=== PATIENT | male | born 1950 | race Caucasian/White ===

== ENCOUNTER 2018-06-28 16:24 | Inpatient (IN) | payer MEDICARE, MEDICAID ==
--- NOTE | 2018-06-28 17:27 | ED Physician Chart ---
ED Chief Complaint/HPI - Patient Information Date Seen:: 06/28/18 Time Seen:: 16:20 Chief Complaint:: Agitation History of Present Illness:: onset x 3 days of agitation and aggressive behavior; no report of trauma, H/As, SIs, neck pain, C/P, SOB, Abd. Pain, A/N/V/D/C, fever, chills, or urinary s/s Allergies:: Allergies Allergy/AdvReac Type Severity Reaction Status Date / Time No Known Allergies Allergy Verified 06/28/18 16:57 Historian:: Patient, EMS Review:: Nurse's Note Reviewed, Old Chart Reviewed, EMS run form Reviewed ED Review of Systems - Review of Systems General/Constitutional: No fever, No chills, No weight loss, No weakness, No diaphoresis, No edema, No loss of appetite Skin: No skin lesions, No rash, No bruising Head: No headache, No light-headedness Eyes: No loss of vision, No pain, No diplopia ENT: No earache, No nasal drainage, No sore throat, No tinnitus Neck: No neck pain, No swelling, No thyromegaly, No stiffness, No mass noted Cardio Vascular: No chest pain, No palpitations, No PND, No orthopnea, No edema Pulmonary: No SOB, No cough, No sputum, No wheezing GI: No nausea, No vomiting, No diarrhea, No pain, No melena, No hematochezia, No constipation, No hematemesis G/U: No dysuria, No frequency, No hematuria, No nacturia Musculoskeletal: No bone or joint pain, No back pain, No muscle pain Endocrine: No polyuria, No polydipsia Psychiatric: No prior psych history, No depression, No anxiety, No suicidal ideation, No homicidal ideation, No auditory hallucination, No visual hallucination Hematopoietic: No bruising, No lymphadenopathy Allergic/Immuno: No urticaria, No angioedema Neurological: No syncope, No focal symptoms, No weakness, No paresthesia, No headache, No seizure, No dizziness, No confusion, No vertigo ED Past Medical History - Past Medical History Obtainable: Yes Past Medical History: HTN, Dyslipidemia Family History: HTN Social History: Non Smoker, No Alcohol, No Drug Use, Single, Care Facility Surgical History: None Psychiatricy History: Bipolar Medication: Reviewed ED Physical Exam - Physical Examination General/Constitutional: Awake, Well-developed, well-nourished, Alert, No distress, GCS 15, Non-toxic appearing, Ambulatory Head: Atraumatic Eyes: Lids, conjuctiva normal, PERRL, EOMI Skin: Nl inspection, No rash, No skin lesions, No ecchymosis, Well hydrated, No lymphadenopathy ENMT: External ears, nose nl, TM canals nl, Nasal exam nl, Lips, teeth, gums nl , Oropharynx nl, Tonsils nl Neck: Nontender, Full ROM w/o pain, No JVD, No nuchal rigidity, No bruit, No mass, No stridor Respiratory: Nl effort/Exclusion, Clear to Auscultation, No Wheeze/Rhonchi/Rales Cardio Vascular: RRR, No murmur, gallop, rubs, NL S1 S2, Carotid/Femoral/Distal pulses equal bilaterally GI: No tenderness/rebounding/guarding, No organomegaly, No hernia, Normal BS's, Nondistended, No mass/bruits, No McBurney tenderness : No CVA tenderness Extremities: No tenderness or effusion, Full ROM, normal strength in all extremities, No edema, Normal digits & nails Neuro/Psych: Alert/oriented, DTR's symmetric, Normal sensory exam, Normal motor strength, Judgement/insight normal, Mood normal, Normal gait, No focal deficits Other Neuro/Psych comments:: + Psychomotor Agitation; no SIs; Mood/Affect: Labile Misc: Normal back, No paraspinal tenderness ED Septic Shock - . Is Septic Shock (SBP<90, OR Lactate>4 mmol\L) present?: No ED Reassessment (Disposition) - Reassessment Reassessment Condition:: Improved - Diagnosis Diagnosis:: Agitation; Medical Clearance
[2018-06-28 21:00] LABS: % BASOPHILS 0.3 % (0.0-2.0); % EOSINOPHILS 2.6 % (0.0-5.0); % LYMPHOCYTES 41.9 % (20.0-50.0); % MONOCYTES 8.3 % (2.0-10.0); % NEUTROPHILS 46.9 % (40.0-80.0); EOSINOPHILE ABSOLUTE 0.3 Th/cmm (0.1-0.4); HEMATOCRIT 51.5 % (41.0-60); LYMPHOCYTE ABSOLUTE 4.1 Th/cmm (1.5-3.0); MEAN CELL VOLUME 94.1 fl (80-99); MEAN CORPUSCULAR HEMOGLOBIN 31.1 pg (27.0-31.0); MEAN CORPUSCULAR HGB CONC 33.1 pg (28.0-36.0); MEAN PLATELET VOLUME 7.7 fl; MONOCYTE ABSOLUTE 0.8 Th/cmm (0.3-1.0); NEUTROPHILE ABSOLUTE 4.5 Th/cmm (1.8-8.0); PLATELET COUNT 235 Th/cmm (150-400); RED BLOOD COUNT 5.47 Mil/cmm (3.80-5.80); RED CELL DISTRIBUTION WIDTH 12.5 % (11.5-20.0); WHITE BLOOD COUNT 9.7 Th/cmm (4.8-10.8)
[2018-06-28 21:32] LABS: ACETAMINOPHEN < 10.0 ug/mL (10.0-30.0); ALKALINE PHOSPHATASE 51 U/L (34-104); BILIRUBIN,TOTAL 0.6 mg/dL (0.3-1.0); BUN - UREA NITROGEN 10 mg/dL (7-25); CALCIUM SERUM 9.2 mg/dL (8.6-10.3); CHOLESTEROL 142 mg/dL (<200); CREATININE - SERUM 0.6 mg/dL (0.7-1.3); GFR AFRICAN-AMERICAN > 60.0 ml/min (>90); GFR NON AFRICAN-AMERICAN > 60.0 ml/min; GLUCOSE 91 mg/dL (70-105); HDL -HIGH DENSITY LIPOPROTEIN 47 mg/dL (23-92); SGOT 15 U/L (13-39); SGPT/ALT 12 U/L (7-52); TOTAL PROTEIN,SERUM 6.3 gm/dL (6.0-8.3); TRIGLYCERIDES 101 mg/dL (<150)
[2018-06-28 22:28] LABS: CHLORIDE 100 mEq/L (98-107); SODIUM SERUM 138 mEq/L (136-145)
[2018-06-28 22:31] LABS: ALB/GLOB RATIO 1.2 (1.0-1.8); ALBUMIN 3.4 gm/dL (4.2-5.5)
[2018-06-28 22:32] LABS: SALICYLATES (ASPIRIN) < 25.0 mg/L (30.0-100.0)
[2018-06-29 00:06] VITALS: BP 136/97
[2018-06-29] MEDS ORDERED: Polyvinyl Alcohol Ophth Soln 15 mL Bottle EACH EYE PRN (00:55)
[2018-06-29] MEDS ORDERED: Non-Formulary Item 1 EA (Clonidine Hcl [Clonidine Hcl] 0.2 MG) PO SCH (01:00)
[2018-06-29 03:12] LABS: CHOLESTEROL 144 mg/dL (<200); HDL -HIGH DENSITY LIPOPROTEIN 49 mg/dL (23-92); TRIGLYCERIDES 105 mg/dL (<150)
--- NOTE | 2018-06-29 08:56 | History and Physical ---
History of Present Illness - HPI Chief Complaint: Increased in agitation HPI: Patient was send from SNF for evaluation for increased in agitation. 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 Pertinent Hx GI: Report: No Pertinent Hx Psych: Report: Psychosis Musculoskeletal: Report: Weakness, Other (Left hemiplegia) Rheumatologic: Report: No pertinent Hx Infectious Disease: Report: No Pertinent Hx Renal/: Report: Benign Prostatic Enlarg Endocrine: Report: No Pertinent Hx Dermatology: Report: No Pertinent Hx - Past Surgical History Past Surgical History: No pertinent Hx Family Medical History - Family Member Mother History Unknown: Yes Social History Smoke: <1 pack per day Alcohol: None Drugs: None Lives: Custodial Domestic Violence: Negative - Medications Home Medications: Home Medication Medication Instructions Recorded Type Acetaminophen 650 mg PO Q4H PRN 06/28/18 History Albuterol/Ipratropium Neb [Duoneb 3 ml HHN Q8HR PRN 06/28/18 History Neb] Clonidine HCl 0.2 mg PO Q12H 06/28/18 History Dextran 70/Hypromellose/Pf 1 each EACH EYE Q6H PRN 06/28/18 History [Artificial Tears Drops] Docusate Sodium [Col-Rite] 250 mg PO DAILY 06/28/18 History Escitalopram Oxalate [Lexapro] 5 mg PO HS 06/28/18 History Fluticasone/Salmeterol [Advair 1 puff IH BID 06/28/18 History 250-50 Diskus] Hydrochlorothiazide [Hctz*] 25 mg PO DAILY 06/28/18 History Levetiracetam [Keppra] 500 mg PO BID 06/28/18 History Multivitamin w/ Minerals 1 tab PO DAILY 06/28/18 History [Theragran M] Psyllium Husk/Aspartame 3.4 gm PO BID 06/28/18 History [Margaret-Mucil Powder] QUEtiapine Fumarate [SEROquel] 100 mg PO HS 06/28/18 History Tamsulosin [Flomax] 0.4 mg PO QPM 06/28/18 History - Allergies Allergies/Adverse Reactions: Allergies Allergy/AdvReac Type Severity Reaction Status Date / Time No Known Allergies Allergy Verified 06/28/18 16:57 Review of Systems - Review of Systems Constitutional: Report: No Significant Eyes: Report: No Significant ENT: Report: No Significant Respiratory: Report: No Significant Cardiovascular: Report: No Significant Gastrointestinal: Report: No Significant Genitourinary: Report: No Significant Musculoskeletal: Report: No Significant Skin: Report: No Significant Neurological: Report: Weakness Physical Exam - Physical Exam HEENT: Report: Ears Nose Throat within normal limits Neck: Report: Within normal limits Cardiovascular Systems: Report: Regular, Rate and Rhythm Respiratory: Report: Other (Rude respiration) Abdomen: Report: Non-tender to palpation Back: Report: Inspection of back is within normal limits. Extremities: Report: Other (Left hemiplegia) Neuro/Psych: Report: Depressed affect - Lab Results All Lab Results last 24 hours: Laboratory Results - last 24 hr 06/28/18 06/28/18 06/28/18 20:50 20:50 20:50 WBC 9.7 RBC 5.47 Hgb 17.0 Hct 51.5 MCV 94.1 MCH 31.1 H MCHC Differential 33.1 RDW 12.5 Plt Count 235 MPV 7.7 Neutrophils % 46.9 Lymphocytes % 41.9 Monocytes % 8.3 Eosinophils % 2.6 Basophils % 0.3 Sodium 138 Potassium 4.0 Chloride 100 Carbon Dioxide 29.0 Anion Gap 13.0 BUN 10 Creatinine 0.6 L Est GFR ( Amer) > 60.0 Est GFR (Non-Af Amer) > 60.0 BUN/Creatinine Ratio 16.7 Glucose 91 Calcium 9.2 Total Bilirubin 0.6 AST 15 ALT 12 Alkaline Phosphatase 51 Troponin I Total Protein 6.3 Albumin 3.4 L Globulin 2.9 Albumin/Globulin Ratio 1.2 Triglycerides 101 Cholesterol 142 LDL Cholesterol Direct 92 HDL Cholesterol 47 TSH 2.91 Salicylates < 25.0 L Acetaminophen < 10.0 L Ethyl Alcohol < 10 06/28/18 06/28/18 20:50 20:50 WBC RBC Hgb Hct MCV MCH MCHC Differential RDW Plt Count MPV Neutrophils % Lymphocytes % Monocytes % Eosinophils % Basophils % Sodium Potassium Chloride Carbon Dioxide Anion Gap BUN Creatinine Est GFR ( Amer) Est GFR (Non-Af Amer) BUN/Creatinine Ratio Glucose Calcium Total Bilirubin AST ALT Alkaline Phosphatase Troponin I 0.01 Total Protein Albumin Globulin Albumin/Globulin Ratio Triglycerides 105 Cholesterol 144 LDL Cholesterol Direct 97 HDL Cholesterol 49 TSH Salicylates Acetaminophen Ethyl Alcohol - Assessment Assessment: Patient is awake, resting in chair, angry, in no acute distress. Dx: increased in agitation, HTN, COPD, BPH, Left hemiplegia, S.P CVA. - Plan Plan: Patient is follow by Psychiatry, silvia continue with SNF meds. Will continue to monitor.
[2018-06-29] MEDS ORDERED: Non-Formulary Item 1 EA (Fluticasone/Salmeterol [Advair 250-50 Diskus] 1 PUFF) IH SCH (09:00)
[2018-06-29] MEDS: Multivitamin w/ Minerals Tab PO SCH (10:00)
[2018-06-29] MEDS: Budesonide 0.5 Mg/2 mL Ud HHN SCH (19:51)
[2018-06-29] MEDS: Escitalopram Oxalate 5 mg Tab PO SCH (20:52)
[2018-06-30] MEDS: Budesonide 0.5 Mg/2 mL Ud HHN SCH ×2 (07:32→20:08)
--- NOTE | 2018-06-30 08:39 | General Progress Note ---
Subjective - Review of Systems Service Date: 06/30/18 Subjective: I want go back to my place. Objective - Results Result Diagrams: 06/28/18 20:50 06/28/18 20:50 Recent Labs: Laboratory Last Values WBC 9.7 Th/cmm (4.8-10.8) 06/28/18 20:50 RBC 5.47 Mil/cmm (3.80-5.80) 06/28/18 20:50 Hgb 17.0 gm/dL (12-16) 06/28/18 20:50 Hct 51.5 % (41.0-60) 06/28/18 20:50 MCV 94.1 fl (80-99) 06/28/18 20:50 MCH 31.1 pg (27.0-31.0) H 06/28/18 20:50 MCHC Differential 33.1 pg (28.0-36.0) 06/28/18 20:50 RDW 12.5 % (11.5-20.0) 06/28/18 20:50 Plt Count 235 Th/cmm (150-400) 06/28/18 20:50 MPV 7.7 fl 06/28/18 20:50 Neutrophils % 46.9 % (40.0-80.0) 06/28/18 20:50 Lymphocytes % 41.9 % (20.0-50.0) 06/28/18 20:50 Monocytes % 8.3 % (2.0-10.0) 06/28/18 20:50 Eosinophils % 2.6 % (0.0-5.0) 06/28/18 20:50 Basophils % 0.3 % (0.0-2.0) 06/28/18 20:50 Sodium 138 mEq/L (136-145) 06/28/18 20:50 Potassium 4.0 mEq/L (3.5-5.1) 06/28/18 20:50 Chloride 100 mEq/L (98-107) 06/28/18 20:50 Carbon Dioxide 29.0 mEq/L (21.0-31.0) 06/28/18 20:50 Anion Gap 13.0 (7.0-16.0) 06/28/18 20:50 BUN 10 mg/dL (7-25) 06/28/18 20:50 Creatinine 0.6 mg/dL (0.7-1.3) L 06/28/18 20:50 Est GFR ( Amer) > 60.0 ml/min (>90) 06/28/18 20:50 Est GFR (Non-Af Amer) > 60.0 ml/min 06/28/18 20:50 BUN/Creatinine Ratio 16.7 06/28/18 20:50 Glucose 91 mg/dL (70-105) 06/28/18 20:50 Calcium 9.2 mg/dL (8.6-10.3) 06/28/18 20:50 Total Bilirubin 0.6 mg/dL (0.3-1.0) 06/28/18 20:50 AST 15 U/L (13-39) 06/28/18 20:50 ALT 12 U/L (7-52) 06/28/18 20:50 Alkaline Phosphatase 51 U/L (34-104) 06/28/18 20:50 Troponin I 0.01 ng/mL (0.01-0.05) 06/28/18 20:50 Total Protein 6.3 gm/dL (6.0-8.3) 06/28/18 20:50 Albumin 3.4 gm/dL (4.2-5.5) L 06/28/18 20:50 Globulin 2.9 gm/dL 06/28/18 20:50 Albumin/Globulin Ratio 1.2 (1.0-1.8) 06/28/18 20:50 Triglycerides 105 mg/dL (<150) 06/28/18 20:50 Cholesterol 144 mg/dL (<200) 06/28/18 20:50 LDL Cholesterol Direct 97 mg/dL (75-193) 06/28/18 20:50 HDL Cholesterol 49 mg/dL (23-92) 06/28/18 20:50 TSH 2.91 uIU/ml (0.34-5.60) 06/28/18 20:50 Salicylates < 25.0 mg/L (30.0-100.0) L 06/28/18 20:50 Acetaminophen < 10.0 ug/mL (10.0-30.0) L 06/28/18 20:50 Ethyl Alcohol < 10 mg/dL (0-10) 06/28/18 20:50 - Physical Exam Vitals and I&O: Vital Signs Temp 97 F 06/29/18 20:00 Pulse 104 06/30/18 07:51 Resp 18 06/30/18 07:51 BP 164/67 06/29/18 20:00 Pulse Ox 97 06/30/18 07:51 Intake & Output 06/29/18 06/30/18 06/30/18 18:59 06:59 18:59 Intake Total 1200 120 Balance 1200 120 Intake: Oral 1200 120 Other: # Voids 3 # Bowel Movements 1 Stool Characteristics Soft Active Medications: Current Medications Acetaminophen (Tylenol) 650 mg PO Q4H PRN PRN Reason: Pain or Fever >101 Stop: 08/28/18 00:54 Albuterol/Ipratropium (Duoneb Neb) 3 ml HHN Q8HR PRN PRN Reason: Shortness of Breath or Wheeze Stop: 08/28/18 00:54 Artificial Tears (Artificial Tears Ophth Soln) 1 drop EACH EYE Q6H PRN PRN Reason: Dry Eye Budesonide (Pulmicort) 0.5 mg HHN BIDRT [facility] [place] Stop: 08/28/18 18:59 Last Admin: 06/30/18 07:32 Dose: Not Given Docusate Sodium (Colace) 250 mg PO DAILY [facility] [place] Stop: 08/28/18 08:59 Last Admin: 06/29/18 10:00 Dose: Not Given Escitalopram Oxalate (Lexapro) 5 mg PO HS [facility] [place]; Protocol Stop: 08/28/18 20:59 Last Admin: 06/29/18 20:52 Dose: 5 mg Hydrochlorothiazide (Hctz) 25 mg PO DAILY [facility] [place] Stop: 08/28/18 08:59 Last Admin: 06/29/18 10:08 Dose: 25 mg Levetiracetam (Keppra) 500 mg PO BID [facility] [place] Stop: 08/28/18 08:59 Last Admin: 06/29/18 16:24 Dose: Not Given Lorazepam (Ativan) 0.5 mg PO Q4HR PRN; Protocol PRN Reason: Anxiety Stop: 07/29/18 00:07 Psyllium Hydrophilic Mucilloid (Metamucil) 1 pkt PO BID [facility] [place] Stop: 08/28/18 08:59 Last Admin: 06/29/18 16:23 Dose: Not Given Quetiapine Fumarate (Seroquel) 100 mg PO HS [facility]; Protocol Stop: 08/28/18 20:59 Last Admin: 06/29/18 20:52 Dose: 100 mg Tamsulosin HCl (Flomax) 0.4 mg PO QPM [facility] Stop: 08/28/18 16:59 Last Admin: 06/29/18 16:24 Dose: Not Given Zolpidem Tartrate (Ambien) 5 mg PO HS PRN PRN Reason: Insomnia Stop: 08/28/18 00:07 General: Alert, Other (Agitated at moments.) HEENT: Atraumatic Neck: Supple Cardiovascular: Regular rate Lungs: Clear to auscultation Abdomen: Bowel sounds, Soft Extremities: Other (Limited movement of left side of body) Neurological: Other (Non ambulatory) Skin: Other (Warm and dry) Psych/Mental Status: Other (Patient is angry) - Procedures Procedures: Procedures Procedure Code Date OTHER GROUP THERAPY 94.44 11/06/11 RECREATIONAL THERAPY 93.81 11/06/11 Assessment/Plan - Assessment Assessment: Patient is awake, resting in chair, angry, in no acute distress. Dx: increased in agitation, HTN, COPD, BPH, Left hemiplegia, S.P CVA. - Plan Plan: Patient is follow by Psychiatry, silvia continue with SNF meds. Will continue to monitor.
[2018-06-30] MEDS: Multivitamin w/ Minerals Tab PO SCH (10:00)
--- NOTE | 2018-06-30 17:11 | Psychiatric Evaluation ---
DATE OF SERVICE: 06/29/2018 HISTORY OF PRESENT ILLNESS: A 68-year-old male sent by Dr. Tucker, multiple days of agitation, aggressive behaviors, attempting to hurt staff, hit staff, the patient denies this, minimizing, but multiple staff members at [facility] told me otherwise, also walking the hallway, aggressive, yelling, screaming, angry, upset, difficult to redirect. Staff concerned about their safety, safety of other people. The patient attesting to anger, depression, anxiety, stating that the staff were lying about him and are jealous because he has an expensive electric wheelchair. Fair sleep, fair appetite. PAST PSYCHIATRIC HISTORY: Noted, seems he has a history of unspecified mood disorder, on Lexapro, Seroquel. PAST MEDICAL HISTORY: Noted. Wheelchair bound also with history of seizures. SOCIAL HISTORY: The patient was born in [place]. He has had multiple marriages, 3 children. FAMILY HISTORY: Daughter with drug use, alcohol use, seems he may be estranged from his children. MEDICATIONS: Noted. MENTAL STATUS EXAMINATION: Stated age. Fair eye contact. Speech within normal limits, loud at times. Mood is "upset." Affect angry. Thought processes were tangential. No overt SI or HI. No overt psychotic symptoms. Some grandiosity is about people being jealous of him because of his electric wheelchair. Insight and judgment poor. Impulse control is poor. PROVISIONAL DIAGNOSES: Mood, unspecified; anxiety, unspecified. Under medical, please see full H and P. ESTIMATED LENGTH OF STAY: 7-10 days. ASSESSMENT: The patient is symptomatic, very labile and the patient with anger outbursts, trying to hit staff, very upset, not amenable to taking medications at this time, aggressive behaviors, trying to roll people down with the wheelchair, trying to hit staff and other patients. PLAN: Treatment plan includes group as well as milieu therapy. CONDITIONS FOR DISCHARGE: Improved mood, improved affect, better control of any agitation and aggressive behaviors. JOB# [id number]
--- NOTE | 2018-06-30 19:09 | Progress Notes ---
DATE: 06/30/2018 SUBJECTIVE: Currently here for agitation and escalation of behaviors, was trying to hit staff. Noting he feels "no calmer," and "pissed off," want to smoke more. The patient upset, mostly withdrawn, isolative, still noted to be angry, highly impulsive, unpredictable, concerns about poor impulsivity, concerns about him lashing out at others, trying to strike others as he has done so in the past. ASSESSMENT: The patient is angry, upset, withdrawn, mostly keeps to himself. Currently on dosing of Lexapro, Seroquel. I will be increasing his dosing of Seroquel to try to tamper down his mood symptoms, aggressive symptom, violent symptoms. JOB# [id number]
[2018-06-30] MEDS: Escitalopram Oxalate 5 mg Tab PO SCH (22:00)
[2018-07-01] MEDS: Budesonide 0.5 Mg/2 mL Ud HHN SCH ×2 (07:42→19:24)
[2018-07-01] MEDS: Multivitamin w/ Minerals Tab PO SCH (08:21)
[2018-07-01] MEDS: Escitalopram Oxalate 5 mg Tab PO SCH (21:56)
--- NOTE | 2018-07-02 01:21 | Progress Notes ---
DATE: 07/01/[address] Tucker. Case was discussed with staff of the patient, reviewed records. This is a 68-year-old male who was admitted on 06/28/2018 because of agitation and aggressive behavior ____. The patient minimizing events leading to admission. [facility]. He was walking in the hallway aggressive, yelling, screaming, angry, upset, hard to redirect, unpredictable, and impulsive. Continues to have poor insight. Unable to make safe plan for self-care. Continues to be unable to participate in a meaningful conversation. He continues to be on high risk. He is on Lexapro 5 mg daily and Seroquel 150 mg at bedtime with no side effects, no sedation or nausea, no extrapyramidal symptoms. The patient continues to be unable to formulate a safe plan for self-care, contract for safety, very volatile. We will continue to work with the patient in group therapy, milieu therapy, and adjust the medications as needed. JOB# [id number]
[2018-07-02] MEDS: Budesonide 0.5 Mg/2 mL Ud HHN SCH ×2 (07:51→18:40)
[2018-07-02] MEDS: Multivitamin w/ Minerals Tab PO SCH (08:03)
[2018-07-02] MEDS: Haldol Oral Sol.(concentrate) 10 mg/5 mL Udc PO SCH ×4 (08:06→21:57)
--- NOTE | 2018-07-02 10:03 | General Progress Note ---
Subjective - Review of Systems Service Date: 07/02/18 Subjective: I want go back to my place. Objective - Results Result Diagrams: 06/28/18 20:50 06/28/18 20:50 Recent Labs: Laboratory Last Values WBC 9.7 Th/cmm (4.8-10.8) 06/28/18 20:50 RBC 5.47 Mil/cmm (3.80-5.80) 06/28/18 20:50 Hgb 17.0 gm/dL (12-16) 06/28/18 20:50 Hct 51.5 % (41.0-60) 06/28/18 20:50 MCV 94.1 fl (80-99) 06/28/18 20:50 MCH 31.1 pg (27.0-31.0) H 06/28/18 20:50 MCHC Differential 33.1 pg (28.0-36.0) 06/28/18 20:50 RDW 12.5 % (11.5-20.0) 06/28/18 20:50 Plt Count 235 Th/cmm (150-400) 06/28/18 20:50 MPV 7.7 fl 06/28/18 20:50 Neutrophils % 46.9 % (40.0-80.0) 06/28/18 20:50 Lymphocytes % 41.9 % (20.0-50.0) 06/28/18 20:50 Monocytes % 8.3 % (2.0-10.0) 06/28/18 20:50 Eosinophils % 2.6 % (0.0-5.0) 06/28/18 20:50 Basophils % 0.3 % (0.0-2.0) 06/28/18 20:50 Sodium 138 mEq/L (136-145) 06/28/18 20:50 Potassium 4.0 mEq/L (3.5-5.1) 06/28/18 20:50 Chloride 100 mEq/L (98-107) 06/28/18 20:50 Carbon Dioxide 29.0 mEq/L (21.0-31.0) 06/28/18 20:50 Anion Gap 13.0 (7.0-16.0) 06/28/18 20:50 BUN 10 mg/dL (7-25) 06/28/18 20:50 Creatinine 0.6 mg/dL (0.7-1.3) L 06/28/18 20:50 Est GFR ( Amer) > 60.0 ml/min (>90) 06/28/18 20:50 Est GFR (Non-Af Amer) > 60.0 ml/min 06/28/18 20:50 BUN/Creatinine Ratio 16.7 06/28/18 20:50 Glucose 91 mg/dL (70-105) 06/28/18 20:50 Calcium 9.2 mg/dL (8.6-10.3) 06/28/18 20:50 Total Bilirubin 0.6 mg/dL (0.3-1.0) 06/28/18 20:50 AST 15 U/L (13-39) 06/28/18 20:50 ALT 12 U/L (7-52) 06/28/18 20:50 Alkaline Phosphatase 51 U/L (34-104) 06/28/18 20:50 Troponin I 0.01 ng/mL (0.01-0.05) 06/28/18 20:50 Total Protein 6.3 gm/dL (6.0-8.3) 06/28/18 20:50 Albumin 3.4 gm/dL (4.2-5.5) L 06/28/18 20:50 Globulin 2.9 gm/dL 06/28/18 20:50 Albumin/Globulin Ratio 1.2 (1.0-1.8) 06/28/18 20:50 Triglycerides 105 mg/dL (<150) 06/28/18 20:50 Cholesterol 144 mg/dL (<200) 06/28/18 20:50 LDL Cholesterol Direct 97 mg/dL (75-193) 06/28/18 20:50 HDL Cholesterol 49 mg/dL (23-92) 06/28/18 20:50 TSH 2.91 uIU/ml (0.34-5.60) 06/28/18 20:50 Salicylates < 25.0 mg/L (30.0-100.0) L 06/28/18 20:50 Acetaminophen < 10.0 ug/mL (10.0-30.0) L 06/28/18 20:50 Ethyl Alcohol < 10 mg/dL (0-10) 06/28/18 20:50 RPR NONREACTIVE (NONREACTIVE) 06/28/18 20:50 - Physical Exam Vitals and I&O: Vital Signs Temp 97.1 F 07/02/18 06:25 Pulse 96 07/02/18 08:03 Resp 20 07/02/18 07:51 BP 146/93 07/02/18 08:04 Pulse Ox 96 07/02/18 07:51 Intake & Output 07/01/18 07/02/18 07/02/18 18:59 06:59 18:59 Intake Total 1500 120 Balance 1500 120 Intake: Oral 1500 120 Other: # Voids 3 2 # Bowel Movements 0 0 Stool Characteristics Soft Soft Active Medications: Current Medications Acetaminophen (Tylenol) 650 mg PO Q4H PRN PRN Reason: Pain or Fever >101 Stop: 08/28/18 00:54 Last Admin: 07/01/18 13:10 Dose: 650 mg Albuterol/Ipratropium (Duoneb Neb) 3 ml HHN Q8HR PRN PRN Reason: Shortness of Breath or Wheeze Stop: 08/28/18 00:54 Artificial Tears (Artificial Tears Ophth Soln) 1 drop EACH EYE Q6H PRN PRN Reason: Dry Eye Budesonide (Pulmicort) 0.5 mg HHN BIDRT [facility] Stop: 08/28/18 18:59 Last Admin: 07/02/18 07:51 Dose: 0.5 mg Docusate Sodium (Colace) 250 mg PO DAILY [facility] Stop: 08/28/18 08:59 Last Admin: 07/02/18 08:07 Dose: Not Given Escitalopram Oxalate (Lexapro) 5 mg PO HS [facility]; Protocol Stop: 08/28/18 20:59 Last Admin: 07/01/18 21:56 Dose: Not Given Haloperidol Lactate (Haldol Concentrate 10mg/5ml Susp) 5 mg PO TID [facility]; Protocol Stop: 08/31/18 08:59 Last Admin: 07/02/18 08:23 Dose: Not Given Hydrochlorothiazide (Hctz) 25 mg PO DAILY [facility] Stop: 08/28/18 08:59 Last Admin: 07/02/18 08:04 Dose: 25 mg Levetiracetam (Keppra) 500 mg PO BID [facility] Stop: 08/28/18 08:59 Last Admin: 07/02/18 08:06 Dose: 500 mg Lorazepam (Ativan) 0.5 mg PO Q4HR PRN; Protocol PRN Reason: Anxiety Stop: 07/29/18 00:07 Psyllium Hydrophilic Mucilloid (Metamucil) 1 pkt PO BID [facility] Stop: 08/28/18 08:59 Last Admin: 07/02/18 08:07 Dose: Not Given Quetiapine Fumarate 100 mg/ (Quetiapine Fumarate 50 mg) 150 mg PO HS [facility] Stop: 08/29/18 20:59 Last Admin: 07/01/18 21:56 Dose: Not Given Tamsulosin HCl (Flomax) 0.4 mg PO QPM [facility] Stop: 08/28/18 16:59 Last Admin: 07/01/18 17:24 Dose: 0.4 mg Zolpidem Tartrate (Ambien) 5 mg PO HS PRN PRN Reason: Insomnia Stop: 08/28/18 00:07 General: Alert, Other (Agitated at moments.) HEENT: Atraumatic Neck: Supple Cardiovascular: Regular rate Lungs: Clear to auscultation Abdomen: Bowel sounds, Soft Extremities: Other (Limited movement of left side of body) Neurological: Other (Non ambulatory) Skin: Other (Warm and dry) Psych/Mental Status: Other (Patient is angry) - Procedures Procedures: Procedures Procedure Code Date OTHER GROUP THERAPY 94.44 11/06/11 RECREATIONAL THERAPY 93.81 11/06/11 Assessment/Plan - Assessment Assessment: Patient is awake, resting in chair, angry, in no acute distress. Dx: increased in agitation, HTN, COPD, BPH, Left hemiplegia, S.P CVA. - Plan Plan: Patient is follow by Psychiatry, wuphilip continue with SNF meds. Will continue to monitor. Nutritional Asmnt/Malnutr-PDOC - Dietary Evaluation Malnutrition Findings (Please click <Entered> for more info): Nutritional Asmnt/Malnutrition Start: 06/29/18 11: 45 Text: Status: Complete Freq: Protocol: Document 07/01/18 18:09 LCHENG (Rec: 07/01/18 18:12 LCHENG [email or web address]) Nutritional Asmnt/Malnutrition Patient General Information Diagnosis psychosis Pertinent Medical Hx/Surgical Hx HTN, dyslipidemia, bipolar Subjective Information Pt seen on wheelchair in dining room. Pt stated he wants go back. Per EMR, PO intake 75-100%. Current Diet Order/ Nutrition Support regular, DIETER, prostate once a day Pertinent Medications colace Pertinent Labs 06/28 Cr 0.6, alb 3.4 Nutritional Hx/Data Height 1.68 m Height (Calculated Centimeters) 167.6 Current Weight (lbs) 74.843 kg Weight (Calculated Kilograms) 74.8 Weight (Calculated Grams) 23975.7 [place] Body Weight 142 Body Mass Index (BMI) 26.6 Weight Status Overweight GI Symptoms GI Symptoms None Last BM 06/29 Difficult in: None Skin Integrity/Comment: intact Current %PO Good (75-100%) Estimated Nutritional Goals BEE in Kcals: Using Current wt Calories/Kcals/Kg 23-27 Kcals Calculated 9536-4928 Protein: Using Current wt Protein g/k.8-1 Protein Calculated 60-75 Fluid: ml 1725-2025ml (1ml/kcal) Nutritional Problem No current Nutrition Prob Problem N/A Malnutrition Alert Is there a minimum of two criteria No selected? Query Text:Check all the applicable criteria. A minimum of two criteria are recommended for diagnosis of either severe or non-severe malnutrition. Malnutrition Related to Morbid Obesity Malnutrition related to morbid obesity No Intervention/Recommendation Comments 1. Continue with DIETER diet as ordered. Prostate is not carried, will send Prosource 1pkg daily instead. 2. Monitor PO intake, wt, labs and skin integrity 3. F/U as low risk in 7 days Expected Outcomes/Goals Expected Outcomes/Goals 1. PO intake to meet at least 75% of nutritional needs. 2. Wt stability, skin to remain intact, labs to approach WNL.
[2018-07-02] MEDS: Escitalopram Oxalate 5 mg Tab PO SCH (21:56)
[2018-07-03] MEDS: Budesonide 0.5 Mg/2 mL Ud HHN SCH ×2 (06:57→19:24)
[2018-07-03] MEDS: Haldol Oral Sol.(concentrate) 10 mg/5 mL Udc PO SCH ×3 (09:02→21:04)
[2018-07-03] MEDS: Multivitamin w/ Minerals Tab PO SCH (09:02)
[2018-07-03] MEDS: Albuterol/Ipratropium Neb 3 ML AERS HHN PRN (11:08)
--- NOTE | 2018-07-03 18:32 | Progress Notes ---
DATE: 07/02/2018 SUBJECTIVE: Chart reviewed and the patient interviewed. Also, discussed the patient's condition with the staff and reviewed records and labs. The patient is having episodes of yelling and he is easily agitated and in angry mood. The patient also is in irritable and "wanted to go back to [place]." The patient was obsessed, he was telling me the same sentence over and over. The patient also said that he informed psychologist that came to talk to him on the unit, "____ you." The patient is still angry and he is still unable to provide any safe plan for self-care and is still agitated. ASSESSMENT: The patient is still psychotic and needs close monitoring. TREATMENT PLAN: We will continue monitoring his behavior and his condition closely. Also, continue adjusting psychotropic medications and continue to follow up. JOB# [id number]
[2018-07-03] MEDS: Escitalopram Oxalate 5 mg Tab PO SCH (21:01)
[2018-07-04] MEDS: Budesonide 0.5 Mg/2 mL Ud HHN SCH ×2 (07:12→18:32)
--- NOTE | 2018-07-04 07:20 | Progress Notes ---
DATE: SUBJECTIVE: Chart reviewed and the patient interviewed. Also discussed the patient's condition with the staff and reviewed records and labs. The patient is still angry and is still in irritable mood. The patient also is still asking to go back "to [place]." He also is still wandering around and has episodes of yelling with anger. Otherwise, the patient is cooperative with his treatment and compliant with taking his medications with no side effects. ASSESSMENT: The patient is still in angry and in irritable mood. TREATMENT PLAN: Continue monitoring his behavior. The patient also was started on Haldol concentrate yesterday with no side effects. We will continue same dose and continue to follow up closely. [facility]# [id number]
--- NOTE | 2018-07-04 08:37 | General Progress Note ---
Subjective - Review of Systems Service Date: 07/04/18 Subjective: I want go back to my place. Objective - Results Result Diagrams: 06/28/18 20:50 06/28/18 20:50 Recent Labs: Laboratory Last Values WBC 9.7 Th/cmm (4.8-10.8) 06/28/18 20:50 RBC 5.47 Mil/cmm (3.80-5.80) 06/28/18 20:50 Hgb 17.0 gm/dL (12-16) 06/28/18 20:50 Hct 51.5 % (41.0-60) 06/28/18 20:50 MCV 94.1 fl (80-99) 06/28/18 20:50 MCH 31.1 pg (27.0-31.0) H 06/28/18 20:50 MCHC Differential 33.1 pg (28.0-36.0) 06/28/18 20:50 RDW 12.5 % (11.5-20.0) 06/28/18 20:50 Plt Count 235 Th/cmm (150-400) 06/28/18 20:50 MPV 7.7 fl 06/28/18 20:50 Neutrophils % 46.9 % (40.0-80.0) 06/28/18 20:50 Lymphocytes % 41.9 % (20.0-50.0) 06/28/18 20:50 Monocytes % 8.3 % (2.0-10.0) 06/28/18 20:50 Eosinophils % 2.6 % (0.0-5.0) 06/28/18 20:50 Basophils % 0.3 % (0.0-2.0) 06/28/18 20:50 Sodium 138 mEq/L (136-145) 06/28/18 20:50 Potassium 4.0 mEq/L (3.5-5.1) 06/28/18 20:50 Chloride 100 mEq/L (98-107) 06/28/18 20:50 Carbon Dioxide 29.0 mEq/L (21.0-31.0) 06/28/18 20:50 Anion Gap 13.0 (7.0-16.0) 06/28/18 20:50 BUN 10 mg/dL (7-25) 06/28/18 20:50 Creatinine 0.6 mg/dL (0.7-1.3) L 06/28/18 20:50 Est GFR ( Amer) > 60.0 ml/min (>90) 06/28/18 20:50 Est GFR (Non-Af Amer) > 60.0 ml/min 06/28/18 20:50 BUN/Creatinine Ratio 16.7 06/28/18 20:50 Glucose 91 mg/dL (70-105) 06/28/18 20:50 Calcium 9.2 mg/dL (8.6-10.3) 06/28/18 20:50 Total Bilirubin 0.6 mg/dL (0.3-1.0) 06/28/18 20:50 AST 15 U/L (13-39) 06/28/18 20:50 ALT 12 U/L (7-52) 06/28/18 20:50 Alkaline Phosphatase 51 U/L (34-104) 06/28/18 20:50 Troponin I 0.01 ng/mL (0.01-0.05) 06/28/18 20:50 Total Protein 6.3 gm/dL (6.0-8.3) 06/28/18 20:50 Albumin 3.4 gm/dL (4.2-5.5) L 06/28/18 20:50 Globulin 2.9 gm/dL 06/28/18 20:50 Albumin/Globulin Ratio 1.2 (1.0-1.8) 06/28/18 20:50 Triglycerides 105 mg/dL (<150) 06/28/18 20:50 Cholesterol 144 mg/dL (<200) 06/28/18 20:50 LDL Cholesterol Direct 97 mg/dL (75-193) 06/28/18 20:50 HDL Cholesterol 49 mg/dL (23-92) 06/28/18 20:50 TSH 2.91 uIU/ml (0.34-5.60) 06/28/18 20:50 Salicylates < 25.0 mg/L (30.0-100.0) L 06/28/18 20:50 Acetaminophen < 10.0 ug/mL (10.0-30.0) L 06/28/18 20:50 Ethyl Alcohol < 10 mg/dL (0-10) 06/28/18 20:50 RPR NONREACTIVE (NONREACTIVE) 06/28/18 20:50 - Physical Exam Vitals and I&O: Vital Signs Temp 0 F 07/04/18 06:33 Pulse 95 07/04/18 07:12 Resp 16 07/04/18 07:12 BP 126/76 07/03/18 16:25 Pulse Ox 93 07/04/18 07:12 Intake & Output 07/03/18 07/04/18 07/04/18 18:59 06:59 18:59 Intake Total 1600 120 Balance 1600 120 Intake: Oral 1600 120 Other: # Voids 3 3 # Bowel Movements 1 0 Stool Characteristics Soft Active Medications: Current Medications Acetaminophen (Tylenol) 650 mg PO Q4H PRN PRN Reason: Pain or Fever >101 Stop: 08/28/18 00:54 Last Admin: 07/03/18 16:51 Dose: 650 mg Albuterol/Ipratropium (Duoneb Neb) 3 ml HHN Q8HR PRN PRN Reason: Shortness of Breath or Wheeze Stop: 08/28/18 00:54 Last Admin: 07/03/18 11:08 Dose: 3 ml Artificial Tears (Artificial Tears Ophth Soln) 1 drop EACH EYE Q6H PRN PRN Reason: Dry Eye Budesonide (Pulmicort) 0.5 mg HHN BIDRT [facility] Stop: 08/28/18 18:59 Last Admin: 07/04/18 07:12 Dose: 0.5 mg Docusate Sodium (Colace) 250 mg PO DAILY [facility] Stop: 08/28/18 08:59 Last Admin: 07/03/18 09:15 Dose: Not Given Escitalopram Oxalate (Lexapro) 5 mg PO HS [facility]; Protocol Stop: 08/28/18 20:59 Last Admin: 07/03/18 21:01 Dose: Not Given Haloperidol Lactate (Haldol Concentrate 10mg/5ml Susp) 5 mg PO TID [facility]; Protocol Stop: 08/31/18 08:59 Last Admin: 07/03/18 21:04 Dose: Not Given Hydrochlorothiazide (Hctz) 25 mg PO DAILY [facility] Stop: 08/28/18 08:59 Last Admin: 07/03/18 09:16 Dose: 25 mg Levetiracetam (Keppra) 500 mg PO BID [facility] Stop: 08/28/18 08:59 Last Admin: 07/03/18 16:51 Dose: 500 mg Lorazepam (Ativan) 0.5 mg PO Q4HR PRN; Protocol PRN Reason: Anxiety Stop: 07/29/18 00:07 Psyllium Hydrophilic Mucilloid (Metamucil) 1 pkt PO BID [facility] Stop: 08/28/18 08:59 Last Admin: 07/03/18 16:45 Dose: Not Given Quetiapine Fumarate 100 mg/ (Quetiapine Fumarate 50 mg) 150 mg PO HS [facility] Stop: 08/29/18 20:59 Last Admin: 07/03/18 21:00 Dose: Not Given Tamsulosin HCl (Flomax) 0.4 mg PO QPM [facility] Stop: 08/28/18 16:59 Last Admin: 07/03/18 16:46 Dose: Not Given Zolpidem Tartrate (Ambien) 5 mg PO HS PRN PRN Reason: Insomnia Stop: 08/28/18 00:07 General: Alert, Other (Agitated at moments.) HEENT: Atraumatic Neck: Supple Cardiovascular: Regular rate Lungs: Clear to auscultation Abdomen: Bowel sounds, Soft Extremities: Other (Limited movement of left side of body) Neurological: Other (Non ambulatory) Skin: Other (Warm and dry) Psych/Mental Status: Other (Patient is angry) - Procedures Procedures: Procedures Procedure Code Date OTHER GROUP THERAPY 94.44 11/06/11 RECREATIONAL THERAPY 93.81 11/06/11 Assessment/Plan - Assessment Assessment: Patient is awake, resting in chair, angry, in no acute distress. Dx: increased in agitation, HTN, COPD, BPH, Left hemiplegia, S.P CVA. - Plan Plan: Patient is follow by Psychiatry, wuill continue with SNF meds. Will continue to monitor. Nutritional Asmnt/Malnutr-PDOC - Dietary Evaluation Malnutrition Findings (Please click <Entered> for more info): Nutritional Asmnt/Malnutrition Start: 06/29/18 11: 45 Text: Status: Complete Freq: Protocol: Document 07/01/18 18:09 LCHENG (Rec: 07/01/18 18:12 LCHENG [email or web address]) Nutritional Asmnt/Malnutrition Patient General Information Diagnosis psychosis Pertinent Medical Hx/Surgical Hx HTN, dyslipidemia, bipolar Subjective Information Pt seen on wheelchair in dining room. Pt stated he wants go back. Per EMR, PO intake 75-100%. Current Diet Order/ Nutrition Support regular, DIETER, prostate once a day Pertinent Medications colace Pertinent Labs 06/28 Cr 0.6, alb 3.4 Nutritional Hx/Data Height 1.68 m Height (Calculated Centimeters) 167.6 Current Weight (lbs) 74.843 kg Weight (Calculated Kilograms) 74.8 Weight (Calculated Grams) 60612.7 [place] Body Weight 142 Body Mass Index (BMI) 26.6 Weight Status Overweight GI Symptoms GI Symptoms None Last BM 06/29 Difficult in: None Skin Integrity/Comment: intact Current %PO Good (75-100%) Estimated Nutritional Goals BEE in Kcals: Using Current wt Calories/Kcals/Kg 23-27 Kcals Calculated 7084-8104 Protein: Using Current wt Protein g/k.8-1 Protein Calculated 60-75 Fluid: ml 1725-2025ml (1ml/kcal) Nutritional Problem No current Nutrition Prob Problem N/A Malnutrition Alert Is there a minimum of two criteria No selected? Query Text:Check all the applicable criteria. A minimum of two criteria are recommended for diagnosis of either severe or non-severe malnutrition. Malnutrition Related to Morbid Obesity Malnutrition related to morbid obesity No Intervention/Recommendation Comments 1. Continue with DIETER diet as ordered. Prostate is not carried, will send Prosource 1pkg daily instead. 2. Monitor PO intake, wt, labs and skin integrity 3. F/U as low risk in 7 days Expected Outcomes/Goals Expected Outcomes/Goals 1. PO intake to meet at least 75% of nutritional needs. 2. Wt stability, skin to remain intact, labs to approach WNL.
[2018-07-04] MEDS: Haldol Oral Sol.(concentrate) 10 mg/5 mL Udc PO SCH ×3 (08:50→20:22)
[2018-07-04] MEDS: Multivitamin w/ Minerals Tab PO SCH (08:50)
[2018-07-04] MEDS: Escitalopram Oxalate 5 mg Tab PO SCH (20:21)
--- NOTE | 2018-07-05 02:08 | Progress Notes ---
DATE: 07/04/2018 SUBJECTIVE: The patient coming in from the hospital, agitation, aggressive behaviors attempting to hurt staff, hit staff. The patient has been calmer, somewhat more cooperative, no behavioral disturbances, over the past 24 hours in better spirits. Sleeping well, eating well. Still somewhat irritable, angry, asking for bananas and sandwiches. ASSESSMENT: The patient is angry, impulsive, unpredictable, currently on dosing of Seroquel. A small dose of Haldol, Lexapro. PLAN: We will continue to monitor. The patient seems to be showing signs of improvement. We will continue to monitor and adjust and titrate medications. JOB# [id number]
[2018-07-05] MEDS: Budesonide 0.5 Mg/2 mL Ud HHN SCH ×2 (06:54→19:12)
--- NOTE | 2018-07-05 09:18 | General Progress Note ---
Subjective - Review of Systems Service Date: 07/05/18 Subjective: I want go back to my place. Objective - Results Result Diagrams: 06/28/18 20:50 06/28/18 20:50 Recent Labs: Laboratory Last Values WBC 9.7 Th/cmm (4.8-10.8) 06/28/18 20:50 RBC 5.47 Mil/cmm (3.80-5.80) 06/28/18 20:50 Hgb 17.0 gm/dL (12-16) 06/28/18 20:50 Hct 51.5 % (41.0-60) 06/28/18 20:50 MCV 94.1 fl (80-99) 06/28/18 20:50 MCH 31.1 pg (27.0-31.0) H 06/28/18 20:50 MCHC Differential 33.1 pg (28.0-36.0) 06/28/18 20:50 RDW 12.5 % (11.5-20.0) 06/28/18 20:50 Plt Count 235 Th/cmm (150-400) 06/28/18 20:50 MPV 7.7 fl 06/28/18 20:50 Neutrophils % 46.9 % (40.0-80.0) 06/28/18 20:50 Lymphocytes % 41.9 % (20.0-50.0) 06/28/18 20:50 Monocytes % 8.3 % (2.0-10.0) 06/28/18 20:50 Eosinophils % 2.6 % (0.0-5.0) 06/28/18 20:50 Basophils % 0.3 % (0.0-2.0) 06/28/18 20:50 Sodium 138 mEq/L (136-145) 06/28/18 20:50 Potassium 4.0 mEq/L (3.5-5.1) 06/28/18 20:50 Chloride 100 mEq/L (98-107) 06/28/18 20:50 Carbon Dioxide 29.0 mEq/L (21.0-31.0) 06/28/18 20:50 Anion Gap 13.0 (7.0-16.0) 06/28/18 20:50 BUN 10 mg/dL (7-25) 06/28/18 20:50 Creatinine 0.6 mg/dL (0.7-1.3) L 06/28/18 20:50 Est GFR ( Amer) > 60.0 ml/min (>90) 06/28/18 20:50 Est GFR (Non-Af Amer) > 60.0 ml/min 06/28/18 20:50 BUN/Creatinine Ratio 16.7 06/28/18 20:50 Glucose 91 mg/dL (70-105) 06/28/18 20:50 Calcium 9.2 mg/dL (8.6-10.3) 06/28/18 20:50 Total Bilirubin 0.6 mg/dL (0.3-1.0) 06/28/18 20:50 AST 15 U/L (13-39) 06/28/18 20:50 ALT 12 U/L (7-52) 06/28/18 20:50 Alkaline Phosphatase 51 U/L (34-104) 06/28/18 20:50 Troponin I 0.01 ng/mL (0.01-0.05) 06/28/18 20:50 Total Protein 6.3 gm/dL (6.0-8.3) 06/28/18 20:50 Albumin 3.4 gm/dL (4.2-5.5) L 06/28/18 20:50 Globulin 2.9 gm/dL 06/28/18 20:50 Albumin/Globulin Ratio 1.2 (1.0-1.8) 06/28/18 20:50 Triglycerides 105 mg/dL (<150) 06/28/18 20:50 Cholesterol 144 mg/dL (<200) 06/28/18 20:50 LDL Cholesterol Direct 97 mg/dL (75-193) 06/28/18 20:50 HDL Cholesterol 49 mg/dL (23-92) 06/28/18 20:50 TSH 2.91 uIU/ml (0.34-5.60) 06/28/18 20:50 Salicylates < 25.0 mg/L (30.0-100.0) L 06/28/18 20:50 Acetaminophen < 10.0 ug/mL (10.0-30.0) L 06/28/18 20:50 Ethyl Alcohol < 10 mg/dL (0-10) 06/28/18 20:50 RPR NONREACTIVE (NONREACTIVE) 06/28/18 20:50 - Physical Exam Vitals and I&O: Vital Signs Temp 0 F 07/05/18 06:34 Pulse 127 07/05/18 06:54 Resp 24 07/05/18 06:54 BP 126/77 07/04/18 09:48 Pulse Ox 94 07/05/18 06:54 Intake & Output 07/04/18 07/05/18 07/05/18 18:59 06:59 18:59 Intake Total 120 Balance 120 Intake: Oral 120 Other: # Voids 3 # Bowel Movements 0 Stool Characteristics Soft Active Medications: Current Medications Acetaminophen (Tylenol) 650 mg PO Q4H PRN PRN Reason: Pain or Fever >101 Stop: 08/28/18 00:54 Last Admin: 07/04/18 11:44 Dose: 650 mg Albuterol/Ipratropium (Duoneb Neb) 3 ml HHN Q8HR PRN PRN Reason: Shortness of Breath or Wheeze Stop: 08/28/18 00:54 Last Admin: 07/03/18 11:08 Dose: 3 ml Artificial Tears (Artificial Tears Ophth Soln) 1 drop EACH EYE Q6H PRN PRN Reason: Dry Eye Budesonide (Pulmicort) 0.5 mg HHN BIDRT [facility] Stop: 08/28/18 18:59 Last Admin: 07/05/18 06:54 Dose: 0.5 mg Docusate Sodium (Colace) 250 mg PO DAILY [facility] Stop: 08/28/18 08:59 Last Admin: 07/04/18 08:49 Dose: 250 mg Escitalopram Oxalate (Lexapro) 5 mg PO HS [facility]; Protocol Stop: 08/28/18 20:59 Last Admin: 07/04/18 20:21 Dose: 5 mg Haloperidol Lactate (Haldol Concentrate 10mg/5ml Susp) 5 mg PO TID [facility]; Protocol Stop: 08/31/18 08:59 Last Admin: 07/04/18 20:22 Dose: 5 mg Hydrochlorothiazide (Hctz) 25 mg PO DAILY [facility] Stop: 08/28/18 08:59 Last Admin: 07/04/18 08:50 Dose: 25 mg Levetiracetam (Keppra) 500 mg PO BID [facility] Stop: 08/28/18 08:59 Last Admin: 07/04/18 16:37 Dose: 500 mg Lorazepam (Ativan) 0.5 mg PO Q4HR PRN; Protocol PRN Reason: Anxiety Stop: 07/29/18 00:07 Last Admin: 07/04/18 09:16 Dose: 0.5 mg Psyllium Hydrophilic Mucilloid (Metamucil) 1 pkt PO BID [facility] Stop: 08/28/18 08:59 Last Admin: 07/04/18 16:36 Dose: Not Given Quetiapine Fumarate 100 mg/ (Quetiapine Fumarate 50 mg) 150 mg PO HS [facility] Stop: 08/29/18 20:59 Last Admin: 07/04/18 20:21 Dose: 150 mg Tamsulosin HCl (Flomax) 0.4 mg PO QPM [facility] Stop: 08/28/18 16:59 Last Admin: 07/04/18 16:37 Dose: 0.4 mg Zolpidem Tartrate (Ambien) 5 mg PO HS PRN PRN Reason: Insomnia Stop: 08/28/18 00:07 General: Alert, Other (Agitated at moments.) HEENT: Atraumatic Neck: Supple Cardiovascular: Regular rate Lungs: Clear to auscultation Abdomen: Bowel sounds, Soft Extremities: Other (Limited movement of left side of body) Neurological: Other (Non ambulatory) Skin: Other (Warm and dry) Psych/Mental Status: Other (Patient is angry) - Procedures Procedures: Procedures Procedure Code Date OTHER GROUP THERAPY 94.44 11/06/11 RECREATIONAL THERAPY 93.81 11/06/11 Assessment/Plan - Assessment Assessment: Patient is awake, resting in chair, angry, in no acute distress. Dx: increased in agitation, HTN, COPD, BPH, Left hemiplegia, S.P CVA. - Plan Plan: Patient is follow by Psychiatry, wuphilip continue with SNF meds. Will continue to monitor. Nutritional Asmnt/Malnutr-PDOC - Dietary Evaluation Malnutrition Findings (Please click <Entered> for more info): Nutritional Asmnt/Malnutrition Start: 06/29/18 11: 45 Text: Status: Complete Freq: Protocol: Document 07/01/18 18:09 LCHENG (Rec: 07/01/18 18:12 [email or web address] [email or web address]) Nutritional Asmnt/Malnutrition Patient General Information Diagnosis psychosis Pertinent Medical Hx/Surgical Hx HTN, dyslipidemia, bipolar Subjective Information Pt seen on wheelchair in dining room. Pt stated he wants go back. Per EMR, PO intake 75-100%. Current Diet Order/ Nutrition Support regular, DIETER, prostate once a day Pertinent Medications colace Pertinent Labs 06/28 Cr 0.6, alb 3.4 Nutritional Hx/Data Height 1.68 m Height (Calculated Centimeters) 167.6 Current Weight (lbs) 74.843 kg Weight (Calculated Kilograms) 74.8 Weight (Calculated Grams) 25289.7 [place] Body Weight 142 Body Mass Index (BMI) 26.6 Weight Status Overweight GI Symptoms GI Symptoms None Last BM 06/29 Difficult in: None Skin Integrity/Comment: intact Current %PO Good (75-100%) Estimated Nutritional Goals BEE in Kcals: Using Current wt Calories/Kcals/Kg 23-27 Kcals Calculated 9139-7580 Protein: Using Current wt Protein g/k.8-1 Protein Calculated 60-75 Fluid: ml 1725-2025ml (1ml/kcal) Nutritional Problem No current Nutrition Prob Problem N/A Malnutrition Alert Is there a minimum of two criteria No selected? Query Text:Check all the applicable criteria. A minimum of two criteria are recommended for diagnosis of either severe or non-severe malnutrition. Malnutrition Related to Morbid Obesity Malnutrition related to morbid obesity No Intervention/Recommendation Comments 1. Continue with DIETER diet as ordered. Prostate is not carried, will send Prosource 1pkg daily instead. 2. Monitor PO intake, wt, labs and skin integrity 3. F/U as low risk in 7 days Expected Outcomes/Goals Expected Outcomes/Goals 1. PO intake to meet at least 75% of nutritional needs. 2. Wt stability, skin to remain intact, labs to approach WNL.
[2018-07-05] MEDS: Haldol Oral Sol.(concentrate) 10 mg/5 mL Udc PO SCH ×3 (09:34→21:42)
[2018-07-05] MEDS: Multivitamin w/ Minerals Tab PO SCH (09:36)
[2018-07-05] MEDS: Albuterol/Ipratropium Neb 3 ML AERS HHN PRN (09:50)
[2018-07-05] MEDS: Escitalopram Oxalate 5 mg Tab PO SCH (21:44)
[2018-07-06] MEDS: Budesonide 0.5 Mg/2 mL Ud HHN SCH ×2 (06:46→19:44)
[2018-07-06] MEDS: Albuterol/Ipratropium Neb 3 ML AERS HHN PRN (06:47)
--- NOTE | 2018-07-06 08:43 | General Progress Note ---
Subjective - Review of Systems Service Date: 07/06/18 Subjective: I want go back to my place. Objective - Results Result Diagrams: 06/28/18 20:50 06/28/18 20:50 Recent Labs: Laboratory Last Values WBC 9.7 Th/cmm (4.8-10.8) 06/28/18 20:50 RBC 5.47 Mil/cmm (3.80-5.80) 06/28/18 20:50 Hgb 17.0 gm/dL (12-16) 06/28/18 20:50 Hct 51.5 % (41.0-60) 06/28/18 20:50 MCV 94.1 fl (80-99) 06/28/18 20:50 MCH 31.1 pg (27.0-31.0) H 06/28/18 20:50 MCHC Differential 33.1 pg (28.0-36.0) 06/28/18 20:50 RDW 12.5 % (11.5-20.0) 06/28/18 20:50 Plt Count 235 Th/cmm (150-400) 06/28/18 20:50 MPV 7.7 fl 06/28/18 20:50 Neutrophils % 46.9 % (40.0-80.0) 06/28/18 20:50 Lymphocytes % 41.9 % (20.0-50.0) 06/28/18 20:50 Monocytes % 8.3 % (2.0-10.0) 06/28/18 20:50 Eosinophils % 2.6 % (0.0-5.0) 06/28/18 20:50 Basophils % 0.3 % (0.0-2.0) 06/28/18 20:50 Sodium 138 mEq/L (136-145) 06/28/18 20:50 Potassium 4.0 mEq/L (3.5-5.1) 06/28/18 20:50 Chloride 100 mEq/L (98-107) 06/28/18 20:50 Carbon Dioxide 29.0 mEq/L (21.0-31.0) 06/28/18 20:50 Anion Gap 13.0 (7.0-16.0) 06/28/18 20:50 BUN 10 mg/dL (7-25) 06/28/18 20:50 Creatinine 0.6 mg/dL (0.7-1.3) L 06/28/18 20:50 Est GFR ( Amer) > 60.0 ml/min (>90) 06/28/18 20:50 Est GFR (Non-Af Amer) > 60.0 ml/min 06/28/18 20:50 BUN/Creatinine Ratio 16.7 06/28/18 20:50 Glucose 91 mg/dL (70-105) 06/28/18 20:50 Calcium 9.2 mg/dL (8.6-10.3) 06/28/18 20:50 Total Bilirubin 0.6 mg/dL (0.3-1.0) 06/28/18 20:50 AST 15 U/L (13-39) 06/28/18 20:50 ALT 12 U/L (7-52) 06/28/18 20:50 Alkaline Phosphatase 51 U/L (34-104) 06/28/18 20:50 Troponin I 0.01 ng/mL (0.01-0.05) 06/28/18 20:50 Total Protein 6.3 gm/dL (6.0-8.3) 06/28/18 20:50 Albumin 3.4 gm/dL (4.2-5.5) L 06/28/18 20:50 Globulin 2.9 gm/dL 06/28/18 20:50 Albumin/Globulin Ratio 1.2 (1.0-1.8) 06/28/18 20:50 Triglycerides 105 mg/dL (<150) 06/28/18 20:50 Cholesterol 144 mg/dL (<200) 06/28/18 20:50 LDL Cholesterol Direct 97 mg/dL (75-193) 06/28/18 20:50 HDL Cholesterol 49 mg/dL (23-92) 06/28/18 20:50 TSH 2.91 uIU/ml (0.34-5.60) 06/28/18 20:50 Salicylates < 25.0 mg/L (30.0-100.0) L 06/28/18 20:50 Acetaminophen < 10.0 ug/mL (10.0-30.0) L 06/28/18 20:50 Ethyl Alcohol < 10 mg/dL (0-10) 06/28/18 20:50 RPR NONREACTIVE (NONREACTIVE) 06/28/18 20:50 - Physical Exam Vitals and I&O: Vital Signs Temp 97.4 F 07/06/18 06:27 Pulse 125 07/06/18 07:02 Resp 20 07/06/18 07:02 BP 126/79 07/06/18 06:27 Pulse Ox 94 07/06/18 07:02 Intake & Output 07/05/18 07/06/18 07/06/18 18:59 06:59 18:59 Intake Total 1200 240 Balance 1200 240 Intake: Oral 1200 240 Other: # Voids 4 1 # Bowel Movements 1 0 Active Medications: Current Medications Acetaminophen (Tylenol) 650 mg PO Q4H PRN PRN Reason: Pain or Fever >101 Stop: 08/28/18 00:54 Last Admin: 07/04/18 11:44 Dose: 650 mg Albuterol/Ipratropium (Duoneb Neb) 3 ml HHN Q8HR PRN PRN Reason: Shortness of Breath or Wheeze Stop: 08/28/18 00:54 Last Admin: 07/06/18 06:47 Dose: 3 ml Artificial Tears (Artificial Tears Ophth Soln) 1 drop EACH EYE Q6H PRN PRN Reason: Dry Eye Budesonide (Pulmicort) 0.5 mg HHN BIDRT [facility]1983 Stop: 08/28/18 18:59 Last Admin: 07/06/18 06:46 Dose: 0.5 mg Docusate Sodium (Colace) 250 mg PO DAILY [facility] Stop: 08/28/18 08:59 Last Admin: 07/05/18 09:35 Dose: 250 mg Escitalopram Oxalate (Lexapro) 5 mg PO HS [facility]; Protocol Stop: 08/28/18 20:59 Last Admin: 07/05/18 21:44 Dose: Not Given Haloperidol Lactate (Haldol Concentrate 10mg/5ml Susp) 5 mg PO TID [facility]; Protocol Stop: 08/31/18 08:59 Last Admin: 07/05/18 21:42 Dose: Not Given Hydrochlorothiazide (Hctz) 25 mg PO DAILY [facility] Stop: 08/28/18 08:59 Last Admin: 07/05/18 09:35 Dose: 25 mg Levetiracetam (Keppra) 500 mg PO BID [facility] Stop: 08/28/18 08:59 Last Admin: 07/05/18 17:42 Dose: 500 mg Lorazepam (Ativan) 0.5 mg PO Q4HR PRN; Protocol PRN Reason: Anxiety Stop: 07/29/18 00:07 Last Admin: 07/04/18 09:16 Dose: 0.5 mg Psyllium Hydrophilic Mucilloid (Metamucil) 1 pkt PO BID [facility] Stop: 08/28/18 08:59 Last Admin: 07/05/18 18:31 Dose: Not Given Quetiapine Fumarate 100 mg/ (Quetiapine Fumarate 50 mg) 150 mg PO HS [facility] Stop: 08/29/18 20:59 Last Admin: 07/05/18 21:42 Dose: Not Given Tamsulosin HCl (Flomax) 0.4 mg PO QPM [facility] Stop: 08/28/18 16:59 Last Admin: 07/05/18 17:42 Dose: 0.4 mg Zolpidem Tartrate (Ambien) 5 mg PO HS PRN PRN Reason: Insomnia Stop: 08/28/18 00:07 General: Alert, Other (Agitated at moments.) HEENT: Atraumatic Neck: Supple Cardiovascular: Regular rate Lungs: Clear to auscultation Abdomen: Bowel sounds, Soft Extremities: Other (Limited movement of left side of body) Neurological: Other (Non ambulatory) Skin: Other (Warm and dry) Psych/Mental Status: Other (Patient is angry) - Procedures Procedures: Procedures Procedure Code Date OTHER GROUP THERAPY 94.44 11/06/11 RECREATIONAL THERAPY 93.81 11/06/11 Assessment/Plan - Assessment Assessment: Patient is awake, resting in chair, angry, in no acute distress. Dx: increased in agitation, HTN, COPD, BPH, Left hemiplegia, S.P CVA. - Plan Plan: Patient is follow by Psychiatry, wuill continue with SNF meds. Will continue to monitor. Nutritional Asmnt/Malnutr-PDOC - Dietary Evaluation Malnutrition Findings (Please click <Entered> for more info): Nutritional Asmnt/Malnutrition Start: 06/29/18 11: 45 Text: Status: Complete Freq: Protocol: Document 07/01/18 18:09 LCHENG (Rec: 07/01/18 18:12 [email or web address] [email or web address]) Nutritional Asmnt/Malnutrition Patient General Information Diagnosis psychosis Pertinent Medical Hx/Surgical Hx HTN, dyslipidemia, bipolar Subjective Information Pt seen on wheelchair in dining room. Pt stated he wants go back. Per EMR, PO intake 75-100%. Current Diet Order/ Nutrition Support regular, DIETER, prostate once a day Pertinent Medications colace Pertinent Labs 06/28 Cr 0.6, alb 3.4 Nutritional Hx/Data Height 1.68 m Height (Calculated Centimeters) 167.6 Current Weight (lbs) 74.843 kg Weight (Calculated Kilograms) 74.8 Weight (Calculated Grams) 47571.7 [place] Body Weight 142 Body Mass Index (BMI) 26.6 Weight Status Overweight GI Symptoms GI Symptoms None Last BM 06/29 Difficult in: None Skin Integrity/Comment: intact Current %PO Good (75-100%) Estimated Nutritional Goals BEE in Kcals: Using Current wt Calories/Kcals/Kg 23-27 Kcals Calculated 0516-9687 Protein: Using Current wt Protein g/k.8-1 Protein Calculated 60-75 Fluid: ml 1725-2025ml (1ml/kcal) Nutritional Problem No current Nutrition Prob Problem N/A Malnutrition Alert Is there a minimum of two criteria No selected? Query Text:Check all the applicable criteria. A minimum of two criteria are recommended for diagnosis of either severe or non-severe malnutrition. Malnutrition Related to Morbid Obesity Malnutrition related to morbid obesity No Intervention/Recommendation Comments 1. Continue with DIETER diet as ordered. Prostate is not carried, will send Prosource 1pkg daily instead. 2. Monitor PO intake, wt, labs and skin integrity 3. F/U as low risk in 7 days Expected Outcomes/Goals Expected Outcomes/Goals 1. PO intake to meet at least 75% of nutritional needs. 2. Wt stability, skin to remain intact, labs to approach WNL.
[2018-07-06] MEDS: Haldol Oral Sol.(concentrate) 10 mg/5 mL Udc PO SCH ×3 (09:10→21:50)
[2018-07-06] MEDS: Multivitamin w/ Minerals Tab PO SCH (09:11)
--- NOTE | 2018-07-06 12:57 | Progress Notes ---
DATE: 07/05/2018 SUBJECTIVE: The patient is currently in the hospital due to agitation and aggressive behaviors. He has continued to be withdrawn and isolative, slept for about 9 hours, orientation to name, place, year. He still has no idea why he is here. He is not quite sure about the month. Still minimizing the reasons aggressive. Staff noting he remains easily agitated, paranoid, very suspicious at times, not wanting to take his medications, declining some of the medications. Staff noting he is easily upset, difficult to redirect. ASSESSMENT: The patient is labile and agitated at times, difficult to redirect him, currently on Haldol dosing. We will continue to monitor, titrate and adjust medication as he still remains upset, angry, concerns about him lashing out of others. JOB# [id number]
[2018-07-06] MEDS: Escitalopram Oxalate 5 mg Tab PO SCH (21:49)
--- NOTE | 2018-07-06 23:08 | Progress Notes ---
DATE: 07/06/2018 SUBJECTIVE: The patient in the hospital, had been agitated, aggressive, much calmer now. No longer suspicious, more engaged, brighter affect, sleeping well, eating well. States he has been taking his medications more consistently. No escalation of behaviors, likely approaching his baseline in regards to his calmness, response to treatment. Medications were noted. ASSESSMENT: The patient more engaged, calmer, more cooperative. No overt psychotic symptoms. PLAN: We will monitor for further 24 hours. The patient is showing signs of improvement. [facility]# [id number]
[2018-07-07] MEDS: Albuterol/Ipratropium Neb 3 ML AERS HHN PRN (07:06)
[2018-07-07] MEDS: Budesonide 0.5 Mg/2 mL Ud HHN SCH (07:06)
--- NOTE | 2018-07-07 08:37 | General Progress Note ---
Subjective - Review of Systems Service Date: 07/07/18 Subjective: I want go back to my place. Objective - Results Result Diagrams: 06/28/18 20:50 06/28/18 20:50 Recent Labs: Laboratory Last Values WBC 9.7 Th/cmm (4.8-10.8) 06/28/18 20:50 RBC 5.47 Mil/cmm (3.80-5.80) 06/28/18 20:50 Hgb 17.0 gm/dL (12-16) 06/28/18 20:50 Hct 51.5 % (41.0-60) 06/28/18 20:50 MCV 94.1 fl (80-99) 06/28/18 20:50 MCH 31.1 pg (27.0-31.0) H 06/28/18 20:50 MCHC Differential 33.1 pg (28.0-36.0) 06/28/18 20:50 RDW 12.5 % (11.5-20.0) 06/28/18 20:50 Plt Count 235 Th/cmm (150-400) 06/28/18 20:50 MPV 7.7 fl 06/28/18 20:50 Neutrophils % 46.9 % (40.0-80.0) 06/28/18 20:50 Lymphocytes % 41.9 % (20.0-50.0) 06/28/18 20:50 Monocytes % 8.3 % (2.0-10.0) 06/28/18 20:50 Eosinophils % 2.6 % (0.0-5.0) 06/28/18 20:50 Basophils % 0.3 % (0.0-2.0) 06/28/18 20:50 Sodium 138 mEq/L (136-145) 06/28/18 20:50 Potassium 4.0 mEq/L (3.5-5.1) 06/28/18 20:50 Chloride 100 mEq/L (98-107) 06/28/18 20:50 Carbon Dioxide 29.0 mEq/L (21.0-31.0) 06/28/18 20:50 Anion Gap 13.0 (7.0-16.0) 06/28/18 20:50 BUN 10 mg/dL (7-25) 06/28/18 20:50 Creatinine 0.6 mg/dL (0.7-1.3) L 06/28/18 20:50 Est GFR ( Amer) > 60.0 ml/min (>90) 06/28/18 20:50 Est GFR (Non-Af Amer) > 60.0 ml/min 06/28/18 20:50 BUN/Creatinine Ratio 16.7 06/28/18 20:50 Glucose 91 mg/dL (70-105) 06/28/18 20:50 Calcium 9.2 mg/dL (8.6-10.3) 06/28/18 20:50 Total Bilirubin 0.6 mg/dL (0.3-1.0) 06/28/18 20:50 AST 15 U/L (13-39) 06/28/18 20:50 ALT 12 U/L (7-52) 06/28/18 20:50 Alkaline Phosphatase 51 U/L (34-104) 06/28/18 20:50 Troponin I 0.01 ng/mL (0.01-0.05) 06/28/18 20:50 Total Protein 6.3 gm/dL (6.0-8.3) 06/28/18 20:50 Albumin 3.4 gm/dL (4.2-5.5) L 06/28/18 20:50 Globulin 2.9 gm/dL 06/28/18 20:50 Albumin/Globulin Ratio 1.2 (1.0-1.8) 06/28/18 20:50 Triglycerides 105 mg/dL (<150) 06/28/18 20:50 Cholesterol 144 mg/dL (<200) 06/28/18 20:50 LDL Cholesterol Direct 97 mg/dL (75-193) 06/28/18 20:50 HDL Cholesterol 49 mg/dL (23-92) 06/28/18 20:50 TSH 2.91 uIU/ml (0.34-5.60) 06/28/18 20:50 Salicylates < 25.0 mg/L (30.0-100.0) L 06/28/18 20:50 Acetaminophen < 10.0 ug/mL (10.0-30.0) L 06/28/18 20:50 Ethyl Alcohol < 10 mg/dL (0-10) 06/28/18 20:50 RPR NONREACTIVE (NONREACTIVE) 06/28/18 20:50 - Physical Exam Vitals and I&O: Vital Signs Temp 97.1 F 07/07/18 06:40 Pulse 111 07/07/18 07:15 Resp 20 07/07/18 07:15 BP 130/68 07/07/18 06:40 Pulse Ox 94 07/07/18 07:15 Intake & Output 07/06/18 07/07/18 07/07/18 18:59 06:59 18:59 Intake Total 120 Balance 120 Intake: Oral 120 Other: # Voids 3 Active Medications: Current Medications Acetaminophen (Tylenol) 650 mg PO Q4H PRN PRN Reason: Pain or Fever >101 Stop: 08/28/18 00:54 Last Admin: 07/06/18 09:12 Dose: 650 mg Albuterol/Ipratropium (Duoneb Neb) 3 ml HHN Q8HR PRN PRN Reason: Shortness of Breath or Wheeze Stop: 08/28/18 00:54 Last Admin: 07/07/18 07:06 Dose: 3 ml Artificial Tears (Artificial Tears Ophth Soln) 1 drop EACH EYE Q6H PRN PRN Reason: Dry Eye Budesonide (Pulmicort) 0.5 mg HHN BIDRT [facility] Stop: 08/28/18 18:59 Last Admin: 07/07/18 07:06 Dose: 0.5 mg Docusate Sodium (Colace) 250 mg PO DAILY [facility] Stop: 08/28/18 08:59 Last Admin: 07/06/18 09:13 Dose: Not Given Escitalopram Oxalate (Lexapro) 5 mg PO HS [facility]; Protocol Stop: 08/28/18 20:59 Last Admin: 07/06/18 21:49 Dose: 5 mg Haloperidol Lactate (Haldol Concentrate 10mg/5ml Susp) 5 mg PO TID [facility]; Protocol Stop: 08/31/18 08:59 Last Admin: 07/06/18 21:50 Dose: Not Given Hydrochlorothiazide (Hctz) 25 mg PO DAILY [facility] Stop: 08/28/18 08:59 Last Admin: 07/06/18 09:10 Dose: 25 mg Levetiracetam (Keppra) 500 mg PO BID [facility] Stop: 08/28/18 08:59 Last Admin: 07/06/18 16:01 Dose: 500 mg Lorazepam (Ativan) 0.5 mg PO Q4HR PRN; Protocol PRN Reason: Anxiety Stop: 07/29/18 00:07 Last Admin: 07/04/18 09:16 Dose: 0.5 mg Psyllium Hydrophilic Mucilloid (Metamucil) 1 pkt PO BID [facility] Stop: 08/28/18 08:59 Last Admin: 07/06/18 09:13 Dose: Not Given Quetiapine Fumarate 100 mg/ (Quetiapine Fumarate 50 mg) 150 mg PO HS [facility] Stop: 08/29/18 20:59 Last Admin: 07/06/18 21:49 Dose: 150 mg Tamsulosin HCl (Flomax) 0.4 mg PO QPM [facility] Stop: 08/28/18 16:59 Last Admin: 07/06/18 16:01 Dose: 0.4 mg Zolpidem Tartrate (Ambien) 5 mg PO HS PRN PRN Reason: Insomnia Stop: 08/28/18 00:07 General: Alert, Other (Agitated at moments.) HEENT: Atraumatic Neck: Supple Cardiovascular: Regular rate Lungs: Clear to auscultation Abdomen: Bowel sounds, Soft Extremities: Other (Limited movement of left side of body) Neurological: Other (Non ambulatory) Skin: Other (Warm and dry) Psych/Mental Status: Other (Patient is angry) - Procedures Procedures: Procedures Procedure Code Date OTHER GROUP THERAPY 94.44 11/06/11 RECREATIONAL THERAPY 93.81 11/06/11 Assessment/Plan - Assessment Assessment: Patient is awake, resting in chair, angry, in no acute distress. Dx: increased in agitation, HTN, COPD, BPH, Left hemiplegia, S.P CVA. - Plan Plan: Patient is follow by Psychiatry, wuill continue with SNF meds. Will continue to monitor. Nutritional Asmnt/Malnutr-PDOC - Dietary Evaluation Malnutrition Findings (Please click <Entered> for more info): Nutritional Asmnt/Malnutrition Start: 06/29/18 11: 45 Text: Status: Complete Freq: Protocol: Document 07/01/18 18:09 LCHENG (Rec: 07/01/18 18:12 [email or web address]) Nutritional Asmnt/Malnutrition Patient General Information Diagnosis psychosis Pertinent Medical Hx/Surgical Hx HTN, dyslipidemia, bipolar Subjective Information Pt seen on wheelchair in dining room. Pt stated he wants go back. Per EMR, PO intake 75-100%. Current Diet Order/ Nutrition Support regular, DIETER, prostate once a day Pertinent Medications colace Pertinent Labs 06/28 Cr 0.6, alb 3.4 Nutritional Hx/Data Height 1.68 m Height (Calculated Centimeters) 167.6 Current Weight (lbs) 74.843 kg Weight (Calculated Kilograms) 74.8 Weight (Calculated Grams) 09902.7 [place] Body Weight 142 Body Mass Index (BMI) 26.6 Weight Status Overweight GI Symptoms GI Symptoms None Last BM 06/29 Difficult in: None Skin Integrity/Comment: intact Current %PO Good (75-100%) Estimated Nutritional Goals BEE in Kcals: Using Current wt Calories/Kcals/Kg 23-27 Kcals Calculated 1574-3582 Protein: Using Current wt Protein g/k.8-1 Protein Calculated 60-75 Fluid: ml 1725-2025ml (1ml/kcal) Nutritional Problem No current Nutrition Prob Problem N/A Malnutrition Alert Is there a minimum of two criteria No selected? Query Text:Check all the applicable criteria. A minimum of two criteria are recommended for diagnosis of either severe or non-severe malnutrition. Malnutrition Related to Morbid Obesity Malnutrition related to morbid obesity No Intervention/Recommendation Comments 1. Continue with DIETER diet as ordered. Prostate is not carried, will send Prosource 1pkg daily instead. 2. Monitor PO intake, wt, labs and skin integrity 3. F/U as low risk in 7 days Expected Outcomes/Goals Expected Outcomes/Goals 1. PO intake to meet at least 75% of nutritional needs. 2. Wt stability, skin to remain intact, labs to approach WNL.
[2018-07-07] MEDS: Haldol Oral Sol.(concentrate) 10 mg/5 mL Udc PO SCH ×2 (08:46→14:40)
[2018-07-07] MEDS: Multivitamin w/ Minerals Tab PO SCH (08:47)
--- NOTE | 2018-07-08 01:25 | Discharge Summary ---
DATE OF DISCHARGE: 07/07/2018 HISTORY OF PRESENT ILLNESS: A 68-year-old male with multiple days of agitation and aggressive behaviors. He was trying to hurt staff, strike out at staff, difficult to redirect, anger, depression, sadness, "pissed off," feeling that others were jealous because he had an expensive electric wheelchair. PAST PSYCHIATRIC HISTORY: Unspecified mood disorder on Lexapro and Seroquel. PAST MEDICAL HISTORY: Noted. SOCIAL HISTORY: Born in [place]. FAMILY HISTORY: Noted. MENTAL STATUS EXAMINATION: Please see full H and P. PROVISIONAL DIAGNOSES: Mood, unspecified; anxiety, unspecified. ESTIMATED LENGTH OF STAY: The patient was here for approximately 7-10 days. HOSPITAL COURSE: After initial assessment, the patient was started on medications. Restarted the medication, medications were adjusted and titrated. Over the course of hospitalization, mood improved, affect improved, much calmer, more cooperative, engaged, friendly, more socially appropriate. No longer trying to hurt anybody, no longer striking out. Sleeping well, eating well. Toward the latter end of treatment, mood improved, affect improved. No aggressive behaviors. CONDITION ON DISCHARGE: Improved, allowing ADLs. Mood "pretty good." Affect constricted. Thought processes were engaged. No SI, no HI, no psychosis. PROVISIONAL DIAGNOSES: Unspecified mood disorder; anxiety, unspecified. Under medical, please see full H and P. PROGNOSIS: The patient follows up with outpatient mental health services and remains compliant with treatment. Prognosis will improve, otherwise guarded. [facility]# [id number]
== END 2018-07-07 15:30 | DRG 885 ==
LOC: ER 16:24 → GERO 22:41
PROVIDERS: ADMIT Psychiatry & Neurology Psychiatry; ATTEND Psychiatry & Neurology Psychiatry
DX: F39 Unspecified mood [affective] disorder (principal); I69.954 Hemiplegia and hemiparesis following unspecified cerebrovascular disease affecting left non-dominant side; F31.9 Bipolar disorder, unspecified; F41.9 Anxiety disorder, unspecified; I25.10 Atherosclerotic heart disease of native coronary artery without angina pectoris; J44.9 Chronic obstructive pulmonary disease, unspecified; N40.0 Benign prostatic hyperplasia without lower urinary tract symptoms; F29 Unspecified psychosis not due to a substance or known physiological condition; I10 Essential (primary) hypertension; E78.5 Hyperlipidemia, unspecified; F17.210 Nicotine dependence, cigarettes, uncomplicated; Z82.49 Family history of ischemic heart disease and other diseases of the circulatory system
CPT/HCPCS: 36415-UA; 80053-TC; 80061-TC; 80320-TC; 80329-TC; 83036-90; 84443-TC; 84484-TC; 85025-TC; 86592-TC; 94640; 94760; Z7610